=== PATIENT | male | born 1970 | race Caucasian/White ===

== ENCOUNTER 2023-08-08 22:55 | Emergency (ER) | payer BC ==
[2023-08-08 23:03] VITALS: BP 107/62; PULSE 68; RESP 16; TEMP 98.2; BMI 33.3
[2023-08-08] MEDS ORDERED: FUROSEMIDE 40 MG/4 ML INJECTABLE VIAL ONE (23:28)
[2023-08-08 23:39] LABS: HEMATOCRIT 46.2 % (35.4-49); HEMOGLOBIN 15.8 G/dL (11.7-16.9); MCH 32.1 pg (25.7-33.7); MCHC 34.3 g/dl (32.0-35.9); MEAN CELL VOLUME 93.6 fl (80-96); MEAN PLT VOLUME 7.3 fl (7.5-11.1); PLATELET COUNT 194.3 10^3/uL (134-434); RBC 4.94 10^6/uL (4.00-5.60); RDW 13.1 % (11.9-15.9); WHITE BLOOD COUNT 7.6 10^3/uL (4.0-10.8)
[2023-08-09 00:42] LABS: CALCIUM 8.8 mg/dL (8.5-10.1)
[2023-08-09 00:43] LABS: BLOOD UREA NITROGEN 20.6 mg/dL (7-18)
[2023-08-09 00:45] LABS: CREATININE 0.9 mg/dL (0.55-1.3)
[2023-08-09 00:47] LABS: BILIRUBIN,TOTAL 0.5 mg/dL (0.2-1)
== END 2023-08-09 01:03 | disposition home or self-care (01) ==
LOC: FER 22:55
DX: R55 Syncope and collapse (principal); R42 Dizziness and giddiness; R11.0 Nausea; R61 Generalized hyperhidrosis
CPT/HCPCS: 36415; 70450-TC; 80053; 82550; 82553; 84484; 85027; 93005; 99285-25